=== PATIENT | female | born 1985 | race Two or more races ===

== ENCOUNTER 2021-02-12 21:39 | Emergency (ER) | payer MEDICAID, OTHER ==
[~2021-02-12] VITALS: Ht 160 cm; Wt 90.7 kg
[2021-02-12 21:39] VITALS: BP 123/92
[2021-02-12 23:41] LABS: Eosinophils # (auto) 0.1 10 ^3/uL (0-0.8); Neutrophils # (auto) 4.1 10 ^3/uL (1.6-8.6); White Blood Cell 6.4 10^3/uL (4.4-10.8)
[2021-02-12 23:44] LABS: Basophils # (auto) 0.1 10 ^3/uL (0-0.2); Eosinophils % (auto) 0.9 % (0.0-7.0); Hematocrit 40.8 % (36.0-46.0); Hemoglobin 13.1 g/dL (12.2-16.2); Lymphocytes # (auto) 1.8 10 ^3/uL (0.4-5.4); Lymphocytes % (auto) 27.9 % (10.0-50.0); Mean Corpuscular Hemoglobin 25.3 pg (28.0-32.0); Mean Corpuscular Hgb Conc. 32.1 g/dL (32.0-36.0); Monocytes # (auto) 0.4 10 ^3/uL (0-1.3); Monocytes % (auto) 6.3 % (0.0-12.0); Neutrophils % (auto) 63.9 % (37.0-80.0); Nucleated Red Blood Cells % 0.1 %; Red Blood Cells 5.17 10^6/uL (4.0-5.20); Red Cell Distribution Width 17.1 % (11.8-14.3)
[2021-02-12 23:58] LABS: Albumin 3.5 g/dL (3.4-5.0); BUN/Creatinine Ratio 14.7; Calcium 8.8 mg/dL (8.5-10.1); Potassium 4.2 mmol/L (3.5-5.1)
[2021-02-13] LABS: Bilirubin, Total 0.6 mg/dL (0.2-1.0); Total Protein 7.4 g/dL (6.4-8.2)
[2021-02-13 08:45] LABS: Urine Bacteria MANY /hpf (None Seen); Urine Blood 2+ /uL (Negative); Urine Specific Gravity 1.008 (1.001-1.035); Urine WBC 27 /hpf (0 - 5)
== END 2021-02-13 11:13 | disposition left against medical advice (07) ==
LOC: ER 21:45 → EDBD 21:45 → ER 02-13 11:13
DX: R11.2 Nausea with vomiting, unspecified (principal); R19.7 Diarrhea, unspecified; R10.13 Epigastric pain
CPT/HCPCS: 36415; 80053; 81001; 85025

== ENCOUNTER → 2021-09-05 | Emergency (ER) | payer MEDICAID ==
[~2021-09-05] VITALS: Ht 154.9 cm; Wt 88.5 kg
[~2021-09-05] MED LIST: CEFP200T15 PO; PREN-145 OR
[2021-09-05 17:27] VITALS: BP 105/57
[2021-09-05 18:24] LABS: Basophils # (auto) 0.1 10 ^3/uL (0-0.2); Eosinophils # (auto) 0 10 ^3/uL (0-0.8); Mean Corpuscular Volume 80.5 fL (80.0-100.0)
[2021-09-05 18:26] LABS: Basophils % (auto) 0.6 % (0.0-2.0); Eosinophils % (auto) 0.3 % (0.0-7.0); Hematocrit 39.1 % (36.0-46.0); Hemoglobin 12.7 g/dL (12.2-16.2); Lymphocytes # (auto) 1.7 10 ^3/uL (0.4-5.4); Lymphocytes % (auto) 10.6 % (10.0-50.0); Mean Corpuscular Hemoglobin 26.1 pg (28.0-32.0); Mean Corpuscular Hgb Conc. 32.4 g/dL (32.0-36.0); Monocytes # (auto) 1.5 10 ^3/uL (0-1.3); Neutrophils # (auto) 13.1 10 ^3/uL (1.6-8.6); Neutrophils % (auto) 79.5 % (37.0-80.0); Nucleated Red Blood Cells % 0.1 %; Red Blood Cells 4.86 10^6/uL (4.0-5.20); Red Cell Distribution Width 16.6 % (11.8-14.3); White Blood Cell 16.5 10^3/uL (4.4-10.8)
[2021-09-05 18:26] LABS: Urine Bacteria MANY /hpf (None Seen); Urine Blood 3+ /uL (Negative); Urine Budding Yeast MODERATE /hpf (None Seen); Urine Mucus FEW (None Seen); Urine Specific Gravity 1.027 (1.001-1.035); Urine WBC 59 /hpf (0 - 5)
[2021-09-05 18:42] LABS: Albumin 3.2 g/dL (3.4-5.0); Calcium 9.9 mg/dL (8.5-10.1); Potassium 3.6 mmol/L (3.5-5.1)
[2021-09-05 18:44] LABS: BUN/Creatinine Ratio 9.1
[2021-09-05 18:47] LABS: Bilirubin, Total 0.8 mg/dL (0.2-1.0); Total Protein 8.2 g/dL (6.4-8.2)
== END | disposition home or self-care (01) ==
LOC: ER 16:58
DX: O20.0 Threatened abortion (principal); O23.41 Unspecified infection of urinary tract in pregnancy, first trimester; N39.0 Urinary tract infection, site not specified; Z3A.11 11 weeks gestation of pregnancy
CPT/HCPCS: 36415; 76801; 76817; 80053; 81001; 81025; 84702; 85025; 86850; 86900; 86901

== ENCOUNTER 2021-09-06 22:58 | Emergency (ER) | payer MEDICAID ==
[~2021-09-06] VITALS: Ht 154.9 cm; Wt 99.3 kg
[2021-09-07 01:16] LABS: Basophils # (auto) 0.1 10 ^3/uL (0-0.2); Basophils % (auto) 0.4 % (0.0-2.0); Eosinophils # (auto) 0 10 ^3/uL (0-0.8); Eosinophils % (auto) 0.2 % (0.0-7.0); Hematocrit 37.7 % (36.0-46.0); Hemoglobin 12.4 g/dL (12.2-16.2); Lymphocytes % (auto) 11.4 % (10.0-50.0); Mean Corpuscular Hemoglobin 26.6 pg (28.0-32.0); Mean Corpuscular Hgb Conc. 32.9 g/dL (32.0-36.0); Monocytes # (auto) 1.5 10 ^3/uL (0-1.3); Monocytes % (auto) 8.1 % (0.0-12.0); Neutrophils # (auto) 14.2 10 ^3/uL (1.6-8.6); Neutrophils % (auto) 79.9 % (37.0-80.0); Red Blood Cells 4.66 10^6/uL (4.0-5.20); Red Cell Distribution Width 16.4 % (11.8-14.3); White Blood Cell 17.8 10^3/uL (4.4-10.8)
[2021-09-07 01:30] LABS: INR 0.99 (0.9-1.15); Partial Thromboplastin Time 30.2 sec (23.6-33.0)
[2021-09-07 01:36] LABS: BUN/Creatinine Ratio 7.4; Calcium 9.6 mg/dL (8.5-10.1); Potassium 3.6 mmol/L (3.5-5.1)
[2021-09-07 01:39] LABS: Bilirubin, Total 1.2 mg/dL (0.2-1.0); Total Protein 8.2 g/dL (6.4-8.2)
[2021-09-07] MEDS ORDERED: SODIUM CHLORIDE 0.9% 500 ML IV ONE (03:00)
[2021-09-07 03:39] LABS: Urine Bacteria NONE SEEN /hpf (None Seen); Urine Blood 3+ /uL (Negative); Urine Specific Gravity 1.009 (1.001-1.035); Urine WBC 2 /hpf (0 - 5)
[2021-09-07] MEDS ORDERED: cefTRIAXone 1GM/50ML D5W 50 ML IV ONE (10:15)
[2021-09-07 14:51] VITALS: BP 120/73
[2021-09-07] MEDS ORDERED: SODIUM CHLORIDE 0.9% 1,000 ML IV ONE (15:15)
[2021-09-07] MEDS ORDERED: LACT. RINGERS/OXYTOCIN 20UNITS 1,000 ML IV ONE (15:15)
== END 2021-09-07 15:17 | disposition short-term general hospital (02) ==
LOC: ER 22:58
DX: O23.41 Unspecified infection of urinary tract in pregnancy, first trimester (principal); N39.0 Urinary tract infection, site not specified; D72.829 Elevated white blood cell count, unspecified; D21.9 Benign neoplasm of connective and other soft tissue, unspecified; C49.9 Malignant neoplasm of connective and soft tissue, unspecified; Z79.899 Other long term (current) drug therapy; Z3A.11 11 weeks gestation of pregnancy
CPT/HCPCS: 36415; 76705; 76801; 76817; 80053; 81001; 83690; 84702; 85025; 85610; 85730; 86850; 86900; 86901; 96361; 96365; 99284; J0696; J7030

== ENCOUNTER 2022-12-04 09:50 | Observation (INO) | payer MEDICAID | END 2022-12-04 12:05 | disposition home or self-care (01) | LOC: UNDOADMOB 09:50 → LDRP 09:50 | PROVIDERS: ADMIT Obstetrics & Gynecology; ATTEND Obstetrics & Gynecology | DX: Z36.89 Encounter for other specified antenatal screening (principal); Z3A.36 36 weeks gestation of pregnancy | CPT/HCPCS: 59025; 76815; 76817; 81002; 94760; G0378 ==

== ENCOUNTER 2022-12-09 09:44 | Observation (INO) | payer MEDICAID | END 2022-12-09 11:05 | disposition home or self-care (01) | LOC: UNDOADMOB 09:44 → LDRP 09:44 | PROVIDERS: ADMIT Obstetrics & Gynecology; ATTEND Obstetrics & Gynecology | DX: O62.9 Abnormality of forces of labor, unspecified (principal); Z3A.37 37 weeks gestation of pregnancy | CPT/HCPCS: 59025; 81002; 94760; G0378 ==

== ENCOUNTER 2022-12-16 00:34 | Observation (INO) | payer MEDICAID ==
[~2022-12-16] VITALS: Ht 154.9 cm; Wt 97.1 kg
[2022-12-17] MEDS ORDERED: IBU600T PO (14:59)
[2022-12-17] MEDS ORDERED: DOCU-94 PO (14:59)
== END 2022-12-16 02:22 | disposition home or self-care (01) ==
LOC: LDRP 00:34
PROVIDERS: ADMIT Obstetrics & Gynecology; ATTEND Obstetrics & Gynecology
DX: O47.1 False labor at or after 37 completed weeks of gestation (principal); O62.9 Abnormality of forces of labor, unspecified; Z3A.38 38 weeks gestation of pregnancy
CPT/HCPCS: 59025; 81002; 94760; G0378

== ENCOUNTER 2022-12-16 09:26 | Inpatient (IN) | payer MEDICAID ==
[~2022-12-16] VITALS: Ht 154.9 cm; Wt 108.9 kg
[2022-12-16] MEDS ORDERED: PHISODERM TOP SOLN 240ML BTL TOP PRN (12:15)
[2022-12-16] MEDS ORDERED: miSOPROStol 100 mcg TAB SL PRN ×2 (12:15→17:30)
[2022-12-16] MEDS ORDERED: WITCH HAZEL-GLYCERIN PAD TOP PRN (12:15)
[2022-12-16] MEDS ORDERED: miSOPROStol 100 mcg TAB PR PRN (12:15)
[2022-12-16] MEDS ORDERED: PENICILLIN G POT 5MIL/D5 50ML 50 ML IV ONE (12:15)
[2022-12-16] MEDS ORDERED: LACT. RINGERS/OXYTOCIN 20UNITS 500 ML IV ONE ×2 (12:15→12:45)
[2022-12-16] MEDS ORDERED: CARBOPROST TROMETHAMINE 250 MCG/1ML VIAL IM PRN (12:15)
[2022-12-16] MEDS ORDERED: PROMETHAZINE HCL 25 MG/ML 1ML IV PRN (12:15)
[2022-12-16] MEDS ORDERED: DERMOPLAST 60ML BOTTLE TOP PRN (12:15)
[2022-12-16] MEDS ORDERED: PROMETHAZINE HCL 25 MG/ML 1ML IM PRN (12:15)
[2022-12-16] MEDS ORDERED: ONDANSETRON HCL 4 MG/2 ML VIAL IV PRN (12:15)
[2022-12-16] MEDS ORDERED: METHYLERGONOVINE MALEATE 0.2 MG/ML AMP IM PRN (12:15)
[2022-12-16] MEDS ORDERED: LIDOCAINE 2%HCL (LOCAL ANESTH.) INJ 20ML MDV IJ PRN (12:15)
[2022-12-16] MEDS ORDERED: TERBUTALINE SULFATE 1 MG/ML 1ML VIAL SC PRN (12:15)
[2022-12-16 12:40] LABS: Urine Bacteria NONE SEEN /hpf (None Seen); Urine Blood Negative /uL (Negative); Urine Clarity Clear (Clear); Urine Color Colorless (Yellow); Urine Protein, UAD Negative (Negative); Urine Specific Gravity 1.004 (1.001-1.035); Urine Urobilinogen Normal (Negative); Urine WBC <1 /hpf (0 - 5); Urine pH 6.5 (5.0-8.0)
[2022-12-16 12:49] LABS: Amphetamine Screen, Urine Neg (NEGATIVE); Barbiturate Scree,Urine Neg (NEGATIVE); Benzodiazephine Screen, Urine Neg (NEGATIVE); Cannabinoid Screen, Urine Neg (NEGATIVE); Cocaine Screen, Urine Neg (NEGATIVE); Opiate Scree,Urine Neg (NEGATIVE); Phencyclidine Screen, Urine Neg (NEGATIVE)
[2022-12-16 12:52] LABS: Basophils # (auto) 0.1 10 ^3/uL (0-0.2); Basophils % (auto) 0.7 % (0.0-2.0); Eosinophils # (auto) 0 10 ^3/uL (0-0.8); Eosinophils % (auto) 0.2 % (0.0-7.0); Hematocrit 38.2 % (36.0-46.0); Hemoglobin 12.9 g/dL (12.2-16.2); Lymphocytes # (auto) 1.5 10 ^3/uL (0.4-5.4); Lymphocytes % (auto) 12.7 % (10.0-50.0); Mean Corpuscular Hemoglobin 29.5 pg (28.0-32.0); Mean Corpuscular Hgb Conc. 33.8 g/dL (32.0-36.0); Mean Corpuscular Volume 87.5 fL (80.0-100.0); Monocytes # (auto) 0.5 10 ^3/uL (0-1.3); Monocytes % (auto) 4.6 % (0.0-12.0); Neutrophils # (auto) 9.5 10 ^3/uL (1.6-8.6); Neutrophils % (auto) 81.8 % (37.0-80.0); Nucleated Red Blood Cells % 0.1 %; Red Blood Cells 4.37 10^6/uL (4.0-5.20); Red Cell Distribution Width 14.9 % (11.8-14.3); White Blood Cell 11.6 10^3/uL (4.4-10.8)
[2022-12-16] MEDS: fentaNYL CITRATE 100 MCG/2 ML VL IV PRN ×2 (13:05→14:50)
[2022-12-16 13:08] LABS: INR 0.93 (0.9-1.15); Partial Thromboplastin Time 28.5 SEC (24.5-34.5); Prothrombin Time 9.8 sec (9.3-11.8)
[2022-12-16] MEDS: LACTATED RINGER'S 1,000 ML IV SCH ×2 (13:37→17:03)
[2022-12-16 13:38] LABS: Alanine Aminotransferase 50 U/L (7-40); Alkaline Phosphatase 317 U/L (46-116); Anion Gap 11 (5-15); Aspartate Aminotransferase 59 U/L (13-40); Bilirubin, Total 0.6 mg/dL (0.2-1.0); Calcium 9.1 mg/dL (8.7-10.4); Carbon Dioxide 18 mmol/L (20-30); Chloride 107 mmol/L (98-107); Glucose 88 mg/dL (74-106); Sodium 136 mmol/L (136-145); Total Protein 7.1 g/dL (5.7-8.2)
[2022-12-16 13:44] LABS: BUN/Creatinine Ratio 8.2 (10.0-20.0); Blood Urea Nitrogen < 5 mg/dL (9-23)
[2022-12-16] MEDS ORDERED: ROPIVACAINE HCL 200 ML EPI SCH (16:15)
[2022-12-16] MEDS ORDERED: LIDOCAINE HCL 2 %PF INJ 10ML AMP IJ ONE (16:15)
[2022-12-16] MEDS ORDERED: ePHEDrine SULFATE 50 MG/ML AMP IV ONE (16:15)
[2022-12-16] MEDS ORDERED: LACTATED RINGER'S 1,000 ML IV ONE (16:15)
[2022-12-16] MEDS ORDERED: PENICILLIN G POTASSIUM 2,500,000 UNITS in D5W 5% 50 ML IV SCH (16:15)
[2022-12-16] MEDS ORDERED: fentaNYL CITRATE 100 MCG/2 ML VL IV ONE (16:15)
[2022-12-16] MEDS ORDERED: NALOXONE HCL 0.4 MG/ML VIAL IV ONE (16:15)
[2022-12-16] MEDS ORDERED: fentaNYL CITRATE 100 MCG/2 ML VL IV PRN (16:45)
[2022-12-16] MEDS ORDERED: MINERAL OIL TOPICAL 10ml TOP PRN (17:30)
[2022-12-16] MEDS ORDERED: CARBOPROST TROMETHAMINE 250 MCG/1ML VIAL IM ONE (17:30)
[2022-12-16] MEDS ORDERED: IBUPROFEN 600 MG TAB PO PRN (20:45)
[2022-12-16] MEDS ORDERED: ACETAMINOPHEN 325 MG TAB PO PRN (20:45)
[2022-12-16] MEDS ORDERED: DOCUSATE SOD 100 MG CAP PO SCH (22:00)
[2022-12-16] MEDS ORDERED: DIPHENOXYLATE W/ATROPINE 2.5 MG TAB PO SCH (22:00)
[2022-12-16 23:00] VITALS: BP 101/56; PULSE 71; RESP 16; TEMP 99.2; O2SAT 98
[2022-12-17 03:00] VITALS: BP 93/45; PULSE 76; RESP 16; TEMP 99.6; O2SAT 96
[2022-12-17 05:00] LABS: Basophils # (auto) 0.1 10 ^3/uL (0-0.2); Basophils % (auto) 0.5 % (0.0-2.0); Eosinophils # (auto) 0.1 10 ^3/uL (0-0.8); Eosinophils % (auto) 0.4 % (0.0-7.0); Hematocrit 34.6 % (36.0-46.0); Hemoglobin 11.5 g/dL (12.2-16.2); Lymphocytes # (auto) 1.9 10 ^3/uL (0.4-5.4); Lymphocytes % (auto) 13.8 % (10.0-50.0); Mean Corpuscular Hgb Conc. 33.3 g/dL (32.0-36.0); Mean Corpuscular Volume 87.1 fL (80.0-100.0); Monocytes % (auto) 7.4 % (0.0-12.0); Neutrophils % (auto) 77.9 % (37.0-80.0); Red Blood Cells 3.97 10^6/uL (4.0-5.20); Red Cell Distribution Width 15.2 % (11.8-14.3); White Blood Cell 14.1 10^3/uL (4.4-10.8)
[2022-12-17 07:00] VITALS: BP 109/59; PULSE 82; RESP 17; TEMP 99; O2SAT 99
[2022-12-17 08:06] LABS: RPR Non Reactive (Non Reactive)
[2022-12-17 10:51] VITALS: BP 101/61; PULSE 77; RESP 16; TEMP 98.1; O2SAT 98
[2022-12-17 14:49] VITALS: BP 92/48; PULSE 78; RESP 17; TEMP 98.4; O2SAT 98
[2022-12-17] MEDS ORDERED: IBU600T PO (14:59)
[2022-12-17] MEDS ORDERED: DOCU-94 PO (14:59)
[2022-12-17 18:31] VITALS: BP 93/57; PULSE 84; RESP 18; TEMP 98.9; O2SAT 99
[2022-12-17 21:50] VITALS: RESP 16
[2022-12-18 20:06] LABS: Treponema pallidum Ab (FTA-Ab) Non Reactive (Non Reactive)
== END 2022-12-17 22:01 | disposition home or self-care (01) | DRG 560 ==
LOC: LDRP 09:26 → INTOOBSV 11:35 → OBSVTOIN 11:35 → LDRP 11:40 → OBSVTOIN 12:01 → LDRP 22:44
PROVIDERS: ADMIT Obstetrics & Gynecology; ATTEND Obstetrics & Gynecology
PROC: 10E0XZZ Delivery of Products of Conception, External Approach (ICD-10-PCS; principal; 2022-12-16)
PROC: 3E0R3BZ Introduction of Anesthetic Agent into Spinal Canal, Percutaneous Approach (ICD-10-PCS; 2022-12-16)
PROC: 00HU33Z Insertion of Infusion Device into Spinal Canal, Percutaneous Approach (ICD-10-PCS; 2022-12-16)
DX: O80 Encounter for full-term uncomplicated delivery (principal); Z37.0 Single live birth; Z3A.38 38 weeks gestation of pregnancy
CPT/HCPCS: 36415; 59025; 59409; 62282; 80053; 80307; 81001; 81002; 85025; 85610; 85730; 86592; 86850; 86900; 86901; 94760; 94762; 96360; 96361; 96365; 96366; 96372; G0378; J2540; J2590; J7060